=== PATIENT | male | born 1995 | race Two or more races ===

== ENCOUNTER 2020-10-03 17:57 | Emergency (ER) | payer BC ==
[~2020-10-03] VITALS: Ht 170.2 cm; Wt 63.0 kg
[~2020-10-03 17:57] MED LIST: AMOX250S6 PO; ONDA8TAB12 PO; OXYC500S PO
--- NOTE | 2020-10-03 18:49 | NUR ---
Pt has complaint of banding pressure all the way around torso right under ribs. Pt denies pain but complains of pressures, increasing when he takes a deep breath. What changed today is his urine color, pt peed for ua urine blood tinged or orange in color. Denies current abx. Pt states "I give myself IV medication" denies "street drugs" states it's a prescription med, is vague about what it is. Connected to all monitors. Call light in reach, workingn on laptop.
--- NOTE | 2020-10-03 18:55 | NUR ---
Bedside report to FAUZIA Lyle.
--- NOTE | 2020-10-03 19:00 | NUR ---
BS REPORT RECEIVED FROM FAUZIA LEA AND ASSUMING CARE OF PT AT THIS TIME.
[2020-10-03 19:02] LABS: MICROSCOPIC INDICATED
[2020-10-03 19:35] LABS: BASOPHILS % (AUTO) 0 % (0-1); EOSINOPHILS % (AUTO) 0 % (1-7); LYMPHOCYTES % (AUTO) 30 % (22-44); MEAN CORPUSCULAR HEMOGLOBIN 33.1 pg (27.5-34.5); MEAN CORPUSCULAR HGB CONC 34.7 g/dL (33.2-36.2); MEAN PLATELET VOLUME 7.5 fL (7.4-10.4); MONOCYTES % (AUTO) 8 % (2-9); NEUTROPHILS % (AUTO) 62 % (42-75); PLATELET COUNT 276 x10^3/uL (130-400); RED BLOOD COUNT 4.92 x10^6/uL (4.38-5.82); RED CELL DISTRIBUTION WIDTH 12.5 % (9.4-14.8)
[2020-10-03 19:38] LABS: MD NO
[2020-10-03 19:43] LABS: ALANINE AMINOTRANSFERASE 28 U/L (12-78); ALBUMIN 4.6 g/dL (3.4-5.0); ANION GAP 7 mmol/L (5-15); CALCIUM 9.5 mg/dL (8.5-10.1); CHLORIDE 105 mmol/L (98-107)
[2020-10-03 19:46] LABS: ALKALINE PHOSPHATASE 90 U/L (45-117); BILIRUBIN,TOTAL 0.6 mg/dL (0.2-1.0); TOTAL PROTEIN 9.1 g/dL (6.4-8.2)
--- NOTE | 2020-10-03 21:08 | NUR ---
PT BACK FROM CT VIA [facility] AT THIS TIME.
[2020-10-03 22:14] VITALS: BP 144/88
--- NOTE | 2020-10-03 22:14 | NUR ---
task rn: Patient given discharge instructions and they have confirmed that they understand the instructions. Patient ambulatory with steady gait. nad, all questions answered appropriately, denies additional needs at this time. no personal belongings left in room after dc
== END 2020-10-03 22:22 | disposition home or self-care (01) ==
LOC: ED 22:12
DX: R10.12 Left upper quadrant pain (principal); R10.11 Right upper quadrant pain; R31.29 Other microscopic hematuria; R94.4 Abnormal results of kidney function studies; M54.6 Pain in thoracic spine
CPT/HCPCS: 36415; 74176; 80053; 81001; 83690; 85025; 99284